=== PATIENT | male | born 1995 | race Caucasian/White ===

== ENCOUNTER 2023-09-06 10:55 | Emergency (ER) | payer BC ==
[~2023-09-06] VITALS: Ht 190.5 cm; Wt 159.1 kg
[2023-09-06 11:02] VITALS: TEMP 98.8
[2023-09-06 11:55] LABS: BASO % 0.3 % (0.0-2.0); EOS % 0.2 % (0.0-4.0); GRAN # 7.9 K/mm3 (1.4-6.5); GRAN % 89.5 % (42.2-75.2); HEMATOCRIT 46.7 % (42.0-52.0); HEMOGLOBIN 15.5 g/dl (13.5-18.0); LYMPH # 0.5 K/mm3 (1.2-3.4); LYMPH % 5.1 % (20.0-51.0); MEAN CELL VOLUME 92 fl (80.0-100.0); MEAN CORPUSCULAR HEMOGLOBIN 30 pg (27-31); MEAN CORPUSCULAR HGB CONC 33 g/dl (33.0-37.0); MEAN PLATELET VOLUME 10.1 fl (7.4-10.4); MONO # 0.4 K/mm3 (0.1-0.6); MONO % 4.7 % (1.7-9.3); PLATELET COUNT 240 K/mm3 (130-400); REDCELL DISTRIBUTION WIDTH-CV 12.5 % (11.5-14.5)
[2023-09-06 12:13] LABS: ALBUMIN 3.7 gm/dL (3.5-5.0); BILIRUBIN,TOTAL 0.7 mg/dL (0.2-1.2); CALCIUM 8.7 mg/dL (8.4-10.2); CREATININE, serum 1.23 mg/dL (0.72-1.25); POTASSIUM 4.8 mmol/L (3.5-4.5); TOTAL PROTEIN 6.9 gm/dL (6.2-8.1)
[2023-09-06 12:59] LABS: CLOSTRIDIUM DIFF A/B NEG
[2023-09-06] MEDS ORDERED: ZOFRAN 4MG T4 MG/TAB PO (13:21)
[2023-09-06 13:51] VITALS: BP 137/70; PULSE 101
== END 2023-09-06 13:51 | disposition home or self-care (01) ==
LOC: COL.ER 10:55
PROVIDERS: Physician Assistant
DX: R11.2 Nausea with vomiting, unspecified (principal); R19.7 Diarrhea, unspecified
CPT/HCPCS: J2405; J7030

== ENCOUNTER 2023-12-31 09:43 | Day surgery (SDC) | payer BC ==
[~2023-12-31] VITALS: Ht 190.5 cm; Wt 174.1 kg
[~2023-12-31 09:43] MED LIST: LR 1,000 ML IV SCH; Ondansetron 4 MG/2 ML VIAL IV PRN; ZOFRAN 4MG T4 MG/TAB PO
[2023-12-31] MEDS ORDERED: MOBIC15 MG PO (09:55)
[2023-12-31 10:04] VITALS: BP 138/88; PULSE 75; TEMP 97.8
[2023-12-31 11:25] VITALS: BP 143/88; PULSE 88; TEMP 97.9
[2023-12-31 11:30] VITALS: BP 100/87; PULSE 81
[2023-12-31 11:45] VITALS: BP 139/74; PULSE 80
--- NOTE | 2023-12-31 12:00 | NUR ---
1125- PATIENT RETURNS TO [facility] [place] [facility] VIA CART. PT AWAKE AND ALERT. RESPIRATIONS UNLABORED. AMBULATED TO RECLINER CHAIR WITH 2:1 SBA. PT DENIES NAUSEA OR ABDOMINAL PAIN. HOOKED UP TO MONITOR AND VS OBTAINED. CALL LIGHT AT SIDE AND PRESENT. 1132- PATIENT TOLERATING PEPSI AND MUFFINS WITHOUT NAUSEA OR ABD PAIN. 1134- DR. GILMORE IN ROOM SPEAKING WITH PATIENT. 1149- D/C INSTRUCTIONS REVIEWED WITH PATIENT. PT VERBALIZED UNDERSTANDING AND A COPY OF INSTRUCTIONS PROVIDED IN D/C FOLDER. 1156- PATIENT DRESSES SELF. 1200- PATIENT DISCHARGED FROM UNIT VIA W/C TO A PERSONAL VEHICLE. PT LEFT HOSPITAL IN STABLE CONDITION.
== END 2023-12-31 12:00 | disposition home or self-care (01) ==
LOC: SDCO 09:43
DX: K62.1 Rectal polyp (principal); R19.4 Change in bowel habit; R10.33 Periumbilical pain; Z80.0 Family history of malignant neoplasm of digestive organs
CPT/HCPCS: J2704; J7120